=== PATIENT | female | born 1945 | race Caucasian/White ===

== ENCOUNTER → 2018-04-14 14:20 | Outpatient (REF) | payer MEDICARE, SELFPAY ==
--- NOTE | 2018-04-14 13:20 | PAPFT_PTH ---
PATIENT: GINA ESCOBAR LOC: [facility] U#:[id number] AGE/SX: 80/F ROOM: RE04/14/[address]: Mai Pozo : 1945 BED: DIS: SPEC #: [id number] RECD: 04/14/18 17:58 STATUS: HALI REWaldo #: [id number] NA: 04/14/18 13:[address]: Mai Pozo DEPT: [facility] RECD BY: Nicole Blount ENTERED: 04/14/18 17:59 SP TYPE: PAPFT OTHR DR: Beth Hanley V Tissues: 1 - CX/ENDOCX FOR PAP SMEARS Procedures: PAP THIN PREP/[facility] Screening Comments: [id number] (UNSATISFACTORY FOR EVALUATION)
== END ==
LOC: LBN 14:20
PROVIDERS: PCP Family Medicine; Visit Provider Obstetrics & Gynecology Gynecology
DX: Z12.4 Encounter for screening for malignant neoplasm of cervix (principal); Z11.51 Encounter for screening for human papillomavirus (HPV)
CPT/HCPCS: 88142; 87624

== ENCOUNTER 2018-07-10 13:03 | Outpatient (CLI) | payer MEDICARE, SELFPAY ==
[2018-07-10 14:38] LABS: Vitamin B12 767 pg/mL (193-986)
[2018-07-15 08:44] LABS: Methylmalonic Acid 0.21 nmol/mL (<=0.40)
== END 2018-07-10 13:23 ==
PROVIDERS: PCP Family Medicine; Visit Provider Family Medicine
DX: E53.8 Deficiency of other specified B group vitamins (principal)
CPT/HCPCS: 36415; 80186; 82607

== ENCOUNTER 2018-07-10 14:37 | Outpatient (REF) | payer MEDICARE, SELFPAY ==
[2018-07-10 15:36] LABS: Bilirubin Small (Negative); Blood Moderate (Negative); Clarity Cloudy; Glucose Negative (Negative); Ketones Trace mg/dL (Negative); Leukocyte Esterase Moderate (Negative); Nitrite Negative (Negative); Specific Gravity >= 1.030 (1.005-1.025); Urobilinogen 0.2 EU/dL (Up TO 0.2)
[2018-07-10 16:36] LABS: Bacteria Rare HPF (Negative); C & S Indicated? No/Sq. Contamination; Casts Negative LPF (Negative); Crystals Many Calcium Oxalate HPF (Negative); Epithelial Cells Many HPF (Negative); Mucus Moderate (Negative); Other Cells Rare Transitional (Negative); WBC 20-50 HPF (0-5)
== END 2018-07-10 14:57 ==
LOC: NCHCN 14:37
PROVIDERS: PCP Family Medicine; Visit Provider Family Medicine
DX: R35.0 Frequency of micturition (principal)
CPT/HCPCS: 81003; 81015

== ENCOUNTER 2018-07-31 14:07 | Outpatient (CLI) | payer MEDICARE, SELFPAY ==
[2018-07-31 15:19] LABS: Abs Immature Grans 0.02 k/cumm (0.0-0.09); Absolute Basophil Count 0.02 k/cumm (0.0-0.2); Absolute Eosinophil Count 0.11 k/cumm (0.0-0.7); Absolute Lymphocyte Count 0.95 k/cumm (1.2-3.4); Absolute Monocyte Count 0.56 k/cumm (0.11-0.7); Absolute Neutrophil Count 6.98 k/cumm (1.2-6.7); Basophils % 0.2; Eosinophils % 1.3; HCT 44.2 % (36.0-46.0); HGB 14.4 g/dL (12.0-15.5); Immature Grans % 0.2; Mean Corp. HGB Concentration 32.6 g/dL (32.0-36.0); Mean Corpuscular Hemoglobin 30.1 pg (27.0-33.0); Mean Corpuscular Volume 92.5 fL (80-95); Mean Platelet Volume 9.6 fL (8.0-11.0); Monocytes % 6.5; Neutrophils % 80.8; Platelet Count 275 x1000/uL (130-400); RBC 4.78 m/cumm (4.00-5.20); RBC Distribution Width 14.2 % (11.7-14.6); White Blood Cell Count 8.64 k/cumm (4.4-10.8)
[2018-07-31 16:07] LABS: Anion Gap 9.2 mmol/L (3-11); BUN 20 mg/dL (7-18); CO2 26.8 mmol/L (21.0-32.0); Calcium 9.5 mg/dL (8.5-10.1); Chloride 103 mmol/L (98-107); Ferritin 51 ng/mL (8-388); Glucose 136 mg/dL (70-100); Potassium 4.2 mmol/L (3.5-5.1); Sodium 139 mmol/L (136-145); TSH 1.45 uIU/mL (0.358-3.74)
[2018-07-31 16:16] LABS: Folate > 20.0 ng/mL (8.6-20.0)
[2018-07-31 16:52] LABS: FREE T4 1.16 ng/dL (0.76-1.46)
== END 2018-07-31 14:27 ==
PROVIDERS: PCP Family Medicine; Visit Provider Family Medicine
DX: R53.83 Other fatigue (principal); D50.9 Iron deficiency anemia, unspecified
CPT/HCPCS: 36415; 80048; 82728; 82746; 84439; 84443; 85025

== ENCOUNTER 2018-10-01 15:43 | Outpatient (CLI) | payer MEDICARE, SELFPAY ==
[2018-10-01 16:08] LABS: Bilirubin Negative (Negative); Blood Small (Negative); Clarity Clear; Glucose Negative (Negative); Ketones Negative (Negative); Leukocyte Esterase Negative (Negative); Nitrite Negative (Negative); Urobilinogen 0.2 EU/dL (Up TO 0.2); pH 5.5 (5-8)
[2018-10-01 16:17] LABS: Bacteria Negative HPF (Negative); Epithelial Cells Rare HPF (Negative); Mucus Negative (Negative); RBC 0-2 (0-2); WBC 0-2 HPF (0-5)
[2018-10-01 16:18] LABS: C & S Indicated? No
== END 2018-10-01 16:03 ==
PROVIDERS: PCP Family Medicine; Visit Provider Family Medicine
DX: R35.0 Frequency of micturition (principal)
CPT/HCPCS: 81003; 81015

== ENCOUNTER 2018-11-20 09:21 | Emergency (ER) | payer MEDICARE, SELFPAY ==
[2018-11-20] VITALS (38 sets, daily range): BP systolic 120–172; BP diastolic 71–88; PULSE 77–129; RESP 4–34; TEMP 36.7; O2SAT 94–99
[2018-11-20] MEDS: Albuterol/Ipratropium 3 ML UPD VIAL UPD (10:35)
--- NOTE | 2018-11-20 10:35 | ED.GENADUL_ITS ---
Discharge Plan Disposition Patient Disposition: HOME Condition: Good Discharge Details Chief Complaint: Palpitatns Clinical Impression: SOB (shortness of breath), Chest pain Primary Care Provider: Beth Hanley V ED Provider: Donell Paulino Home Meds and New Rx's Prescriptions: No Action ASPIRIN 325 MG TABLET.DR 325 mg PO PRN RF: 0 breast prosethesis 1 RF: 0 lisinopril 20 MG tablet 10 mg PO PRN RF: 0 Metoprolol Succinate 25 MG TAB.ER.24H 25 mg PO PRN RF: 0 Multi Complete with Iron 1 EACH tablet 1 ea PO DAILY RF: 0 cranactin DAILY RF: 0 obsorbaid DAILY RF: 0 tums 1,000 DAILY RF: 0 obsorbaid DAILY RF: 0 tums DAILY RF: 0 Estring 2 mg (7.5 mcg /24 hour) ring 1 vag ring VG [id number] Qty: 1 RF: 3 lidocaine 4 % gel 1 applic TP TID PRN (Reason: pain) Qty: 30 RF: 6 lidocaine 5 % ointment 1 applic TP TID Qty: 60 RF: 3 VITAMIN B-12 1,000 MCG TABLET.SA 1,000 mcg IJ .COMPLEX RF: 0 Discharge Instructions Instructions: Chest Pain (ED), Dyspnea (ED) Additional Instructions: Please follow-up with your flooring grader and your primary care provider as soon as possible for reassessment. If you notice any worsening of your symptoms, or any new symptoms such as vomiting, diarrhea, fever, chills, shortness of breath, chest pain, numbness, weakness, or fainting , please return immediately to the emergency department for reevaluation. Please follow up with your primary care provider as soon as possible for reassessment and reevaluation. As always, it was a pleasure participating in your medical care today. Referrals: Beth Hanley MD [Primary Care Provider] - Discharge Data Discharge Date/Time-TO BE ENTERED AT DEPARTURE: 11/20/18 15:15 Medical Decision Making This is a very pleasant 73-year-old female who presents for 1 day of palpitations and mild shortness of breath, the shortness of breath and palpitations are present she was going up a flight of stairs. She denies any significant chest pain, arm pain, numbness tingling or weakness. She is on estrogen. She denies any tearing sensation in her chest, history of cardiac disease, or other abnormality. Physical exam demonstrates no significant abnormality, vital signs are reassuring. Patient's laboratory workup was performed, including CT angiogram of the chest. CT angiogram shows no acute process, no evidence of pulmonary embolism, dissection, pneumonia or infection. Patient was given a breathing treatment and had notable improvement of her symptoms. Serial troponins, and EKGs benign and show no evidence of STEMI or significant abnormality aside for her chronic A. fib. The patient feeling much better, benign laboratory workup is benign serial EKGs and serial troponins, no evidence of life-threatening process on CT angiogram, I feel she can be safely discharged home for the time being with close follow-up. We discussed red flags which to return, the importance of her continued albuterol use at home, and red flags for which to return. I have extensively reviewed the treatment plan and discharge instructions with the patient. I have addressed all patient concerns at this time. The patient was made aware of what symptoms to monitor for that would warrant a return to the emergency department. Discussed the plan with the patient, they demonstrate verbal understanding and agreement with our assessment and plan at this time. EKG 9: 40 Rate 91, QTc 443, QRS 92, atrial fibrillation, no significant ST elevations or depressions. No Q waves, PVCs present. No other significant abnormalities. EKG 13: 59 Rate 90, QTc 458, QRS 90, atrial fibrillation, no significant ST elevations or depressions. HPI General Date/Time Provider Initiated Documentation: 11/20/18 09:51 . HPI Narrative: This is a pleasant 73-year-old female with past medical history of estrogen use, A. fib, not on any blood thinners secondary to which she describes as being very low risk, who presents today for evaluation of palpitations and shortness of breath. Patient states that he does have a chronic cough, however over the last day she has noticed that she has become slightly more short of breath than normal. She has experienced palpitations when she walks upstairs which normally she would not. She denies any significant chest pain, any tearing sensation, any radiation of pain into her arms, neck, shoulders. She denies any hemoptysis, fever, chills, new leg swelling, numbness, tingling, headache, or weakness. She denies any recent long trips, recent surgeries, or recent procedures. She denies any history of blood clots, heart attack, or stroke. She does not smoke. She denies any other modifying factors at this time. Related Data Home Medications Medication Instructions Recorded Confirmed Aspirin 325 mg PO PRN 03/05/08 11/20/18 Breast Prosethesis 1 09/24/12 10/09/18 Metoprolol Succinate 25 mg PO PRN tab-cap 03/12/18 11/20/18 lisinopril 10 mg PO PRN 03/12/18 11/20/18 Obsorbaid DAILY 04/14/18 10/09/18 Tums 1,000 DAILY 04/14/18 10/09/18 Tums DAILY 04/14/18 10/09/18 [id number] acid 1 ea PO DAILY 04/14/18 11/20/18 [Multi Complete-Iron Tablet] estradiol 2 mg (7.5 mcg/24 hour) 1 vag ring VG [id number] #1 each 08/28/18 11/20/18 vaginal ring lidocaine 4 % topical gel 1 applic TP TID PRN #30 gm 08/28/18 11/20/18 lidocaine 5 % topical ointment 1 applic TP TID #60 gm 08/28/18 11/20/18 VITAMIN B-12 1,000 mcg IJ .COMPLEX 10/09/18 11/20/18 Previous Rx's Medication Instructions Recorded estradiol 2 mg (7.5 mcg/24 hour) 1 vag ring VG [id number] #1 each 08/28/18 vaginal ring lidocaine 4 % topical gel 1 applic TP TID PRN #30 gm 08/28/18 lidocaine 5 % topical ointment 1 applic TP TID #60 gm 08/28/18 Allergies Allergy/AdvReac Type Severity Reaction Status Date / Time metoprolol AdvReac pedal edema Unverified 11/20/18 09:47 dilitiazem AdvReac Nightmares Uncoded 11/20/18 09:47 General Stated Complaint: Palpitatns SARAHY: 2 Review of Systems Review of Systems All systems reviewed & are unremarkable except as noted in HPI and below PFSH Medical History Vaginal pessary present (Acute 09/27/17) Obstructive sleep apnea on CPAP (Acute 06/04/17) Non-rheumatic mitral regurgitation (Acute 06/04/17) Midline cystocele (Acute 09/09/15) History of breast cancer (Acute 06/17/15) Chronic atrial fibrillation with rapid ventricular response (Acute 06/04/17) Atrophy of vagina (Acute 09/09/15) Cystocele, midline Foul smelling vaginal discharge HTN (hypertension) Vitamin B12 deficiency Social History Smoking/Tobacco Use Status: Former Tobacco Use Substance use type: does not use Do you feel safe in your relationship?: Yes Exam Narrative Exam Narrative: 1.Const: Well-nourished, Well-developed, appearing stated age 2.Eyes: PERRL, no conjunctival injection, and symmetrical lids. 3.ENT: Atraumatic external nose and ears. Moist MM. Neck: Symmetric, trachea midline, No thyromegaly. 4.CVS: +S1/S2, No murmurs or gallops. Peripheral pulses 2+ and equal in all extremities. Brisk capillary refill in all extremities. 5.RESP: Unlabored respiratory effort. Clear to auscultation bilaterally. No wheezes rales or rhonchi 6.GI: Soft, Nontender/Nondistended, No hepatosplenomegaly. No guarding or rebound. 7.MSK: Normocephalic/Atraumatic, Extremities w/o deformity or ttp No cyanosis or clubbing, Normal movement of all extremities, minimal trace pitting edema in her lower extremities bilaterally. Minimal tenderness in her lower extremities throughout, no focal tenderness. 8.Skin: Warm, Dry. No rashes or lesions. 9.Neuro: data virtualization consultant II-XII grossly intact. Sensation grossly intact, no focal neurologic deficits. 10.Psych: (AAO) x3. Appropriate mood and affect Course Vital Signs Temperature 36.7 C 11/20/18 09:41 Pulse 104 H 11/20/18 09:41 Respiratory Rate 11/20/18 09:41 Blood Pressure 172/75 H 11/20/18 09:41 Pulse Oximetry 98 11/20/18 09:41 Temperature 36.7 C 11/20/18 09:41 Temperature Source Skin 11/20/18 09:41 Pulse 104 H 11/20/18 09:41 Respiratory Rate 11/20/18 09:41 Respiratory Effort Non-Labored 11/20/18 09:41 Blood Pressure 172/75 H 11/20/18 09:41 Blood Pressure Position Supine 11/20/18 09:41 Pulse Oximetry 98 11/20/18 09:41 Oxygen Delivery Method Room Air 11/20/18 09:41 Oxygen Flow Rate 0 11/20/18 09:41 Pain Level 0 11/20/18 09:41
[2018-11-20 11:45] LABS: BE (Venous) 4.4 mmol/L (-3-3); HCO3 (Venous) 29 mmol/L (22-28); O2 Sat (Venous) 65 % (70-80); TCO2 (Venous) 26 mmol/L (22-29); pCO2 (Venous) 49 mm/Hg (34-47); pH (Venous) 7.39 (7.32-7.43); pO2 (Venous) 34 mm/Hg (28-44)
[2018-11-20 11:46] LABS: Abs Immature Grans 0.01 k/cumm (0.0-0.09); Absolute Basophil Count 0.03 k/cumm (0.0-0.2); Absolute Eosinophil Count 0.08 k/cumm (0.0-0.7); Absolute Lymphocyte Count 1.33 k/cumm (1.2-3.4); Absolute Monocyte Count 0.67 k/cumm (0.11-0.7); Absolute Neutrophil Count 5.91 k/cumm (1.2-6.7); Basophils % 0.4; HCT 44.8 % (36.0-46.0); HGB 14.7 g/dL (12.0-15.5); Immature Grans % 0.1; Lymphocytes % 16.6; Mean Corp. HGB Concentration 32.8 g/dL (32.0-36.0); Mean Corpuscular Hemoglobin 29.8 pg (27.0-33.0); Mean Corpuscular Volume 90.9 fL (80-95); Monocytes % 8.3; Neutrophils % 73.6; Platelet Count 220 x1000/uL (130-400); RBC 4.93 m/cumm (4.00-5.20); RBC Distribution Width 14.6 % (11.7-14.6); White Blood Cell Count 8.03 k/cumm (4.4-10.8)
[2018-11-20 12:05] LABS: ALT 20 U/L (12-78); AST 19 U/L (15-37); Albumin 3.8 g/dL (3.4-5.0); Alkaline Phosphatase 83 U/L (46-116); Anion Gap 8.5 mmol/L (3-11); BUN 15 mg/dL (7-18); Bilirubin, Total 0.5 mg/dL (0.2-1.0); CO2 27.5 mmol/L (21.0-32.0); CREATININE 0.91 mg/dL (0.55-1.02); Calcium 9.9 mg/dL (8.5-10.1); Chloride 104 mmol/L (98-107); Glucose 103 mg/dL (70-100); NT-proBNP 893 pg/mL; Potassium 3.6 mmol/L (3.5-5.1); Sodium 140 mmol/L (136-145)
[2018-11-20 12:08] LABS: PTT Activated 25.9 sec (21.0-31.4); Prothrombin Time 9.8 sec (9.3-11.0); Troponin I < 0.02 ng/mL (0.00-0.06)
[2018-11-20 12:14] LABS: D-Dimer 469 ng/mlFEU (<500)
--- NOTE | 2018-11-20 13:09 | DI.CT_ITS ---
SYMPTOMS/DIAGNOSIS: TACHYCARDIA, SHORTNESS OF BREATH, A-FIB, ESTROGEN USE, ? PE PE CT: The study was conducted according to the usual protocol with intravenous administration of 71 cc of Omnipaque 350. There is no evidence of pulmonary embolic disease. There are regions of apparent bilateral lower lobe scarring. There is no evidence of an infiltrate or mass. A large hiatus hernia appears to contain virtually the entire stomach. The heart is enlarged. There is no pericardial effusion. There is no evidence of RV strain. There is no evidence of an aortic aneurysm. There are degenerative changes involving the dorsal spine. No acute bony abnormality is apparent. SUMMARY: No evidence of pulmonary embolic disease. Regions of pulmonary scarring are noted. A large retrocardiac hiatus hernia contains virtually the entire stomach.
[2018-11-20] MEDS: Omnipaque 350 MG/ML 100 ML BTL IJ (13:11)
[2018-11-20 14:23] LABS: Troponin I < 0.02 ng/mL (0.00-0.06)
== END 2018-11-20 15:15 | disposition home or self-care (01) ==
PROVIDERS: Emergency Provider Student in an Organized Health Care Education/Training Program; PCP Family Medicine
DX: R07.9 Chest pain, unspecified (principal); R06.02 Shortness of breath; I10 Essential (primary) hypertension
CPT/HCPCS: 36415; 71275; 80053; 82805; 93005; 94640; 99285; 83880; 84484; 85025; 85379; 85610; 85730; 93010; J3490; J7620

== ENCOUNTER 2018-12-21 10:38 | Emergency (ER) | payer MEDICARE, SELFPAY ==
[2018-12-21 10:41] VITALS: BP 157/95; PULSE 97; RESP 16; TEMP 36.4; O2SAT 98
--- NOTE | 2018-12-21 11:05 | ED.GENADUL_ITS ---
Discharge Plan Disposition Patient Disposition: HOME Condition: Improving Discharge Details Chief Complaint: RespSymp Clinical Impression: Acute bronchitis Primary Care Provider: Beth Hanley V ED Provider: Isai Shaw Home Meds and New Rx's Prescriptions: New doxycycline hyclate 100 mg capsule 100 mg PO BID 10 Days Qty: 20 RF: 0 guaifenesin [Mucinex] 600 mg tablet extended release 12hr 600 mg PO Q12H PRNQty: 10 RF: 0 benzonatate [Tessalon Perles] 100 mg capsule 100 mg PO TID PRN (Reason: cough) Qty: 14 RF: 0 No Action ASPIRIN 325 MG TABLET.DR 325 mg PO PRN RF: 0 breast prosethesis 1 RF: 0 Metoprolol Succinate 25 MG TAB.ER.24H 25 mg PO PRN RF: 0 Multi Complete with Iron 1 EACH tablet 1 ea PO DAILY RF: 0 cranactin DAILY RF: 0 obsorbaid DAILY RF: 0 tums DAILY RF: 0 Estring 2 mg (7.5 mcg /24 hour) ring 1 vag ring VG [id number] Qty: 1 RF: 3 lidocaine 4 % gel 1 applic TP TID PRN (Reason: pain) Qty: 30 RF: 6 lidocaine 5 % ointment 1 applic TP TID Qty: 60 RF: 3 VITAMIN B-12 1,000 MCG TABLET.SA 1,000 mcg IJ .COMPLEX RF: 0 Discharge Instructions Instructions: Acute Bronchitis (ED) Additional Instructions: Small, frequent sips of fluids to maintain hydration. As we discussed, we will employ a wait and see approach to use of antibiotics. Begin them if you feel worsening over the next 12 to 36 hours time. May use Tessalon and Mucinex as prescribed to decrease cough and congestion. Please follow-up with Dr Casanova if not improved in 3 to 5 days Medical Decision Making Delightful 73-year-old female presents from home with day 3 of a cough with progressive congestion. She is had some production of sputum. She has not documented a fever, does not have any known sick contacts or recent travel. No chest pain, palpitations, or other concerning findings on review of systems or exam. She is well-appearing with normal oxygenation. Referred for chest x-ray to rule out underlying mass or pneumonia. Images: Reveal atelectasis and known hiatal hernia. No focal infiltrate. Discussed with there are a strategy of weight and see use of antibiotics. I will prescribe her Mucinex and Tessalon for symptomatic management. She is stable and improved. Appropriate for discharge to home. She will follow-up with Dr Casanova if not improved in 3-5 days. HPI General Mode of arrival: ambulatory . Date/Time Provider Initiated Documentation: 12/21/18 10:39 . Limitations to Documentation: no limitations . Information obtained by: patient . History of Present Illness 73 year old F presents to the emergency department with the chief complaint of Cough and congestion since Saturday, described as moderate, Quality is described as dull, and is localized to the chest. Patient reports no radiation. Patient started experiencing this day(s) and it has been constant. No relieving factors improve symptom(s), Other factors that worsen symptoms (Worse at night) . Patient notes no other symptoms.; denies chest pain, fever/chills, syncope and weakness. Patient did receive the following treatments prior to arrival, none Related Data Home Medications Medication Instructions Recorded Confirmed Aspirin 325 mg PO PRN 03/05/08 12/21/18 Breast Prosethesis 1 09/24/12 10/09/18 Metoprolol Succinate 25 mg PO PRN tab-cap 03/12/18 11/20/18 Tums DAILY 04/14/18 10/09/18 [id number]-ddeml acid 1 ea PO DAILY 04/14/18 12/21/18 [Multi Complete-Iron Tablet] estradiol 2 mg (7.5 mcg/24 hour) 1 vag ring VG [id number] #1 each 08/28/18 12/21/18 vaginal ring lidocaine 4 % topical gel 1 applic TP TID PRN #30 gm 08/28/18 12/21/18 lidocaine 5 % topical ointment 1 applic TP TID #60 gm 08/28/18 12/21/18 VITAMIN B-12 1,000 mcg IJ .COMPLEX 10/09/18 12/21/18 benzonatate [Tessalon Perles] 100 mg PO TID PRN #14 cap 12/21/18 doxycycline hyclate 100 mg PO BID 10 Days #20 cap 12/21/18 guaifenesin [Mucinex] 600 mg PO Q12H PRN #10 tab 12/21/18 Previous Rx's Medication Instructions Recorded estradiol 2 mg (7.5 mcg/24 hour) 1 vag ring VG [id number] #1 each 08/28/18 vaginal ring lidocaine 4 % topical gel 1 applic TP TID PRN #30 gm 08/28/18 lidocaine 5 % topical ointment 1 applic TP TID #60 gm 08/28/18 benzonatate [Tessalon Perles] 100 mg PO TID PRN #14 cap 12/21/18 doxycycline hyclate 100 mg PO BID 10 Days #20 cap 12/21/18 guaifenesin [Mucinex] 600 mg PO Q12H PRN #10 tab 12/21/18 Allergies Allergy/AdvReac Type Severity Reaction Status Date / Time adhesive Allergy Intermediate Verified 12/21/18 10:44 metoprolol AdvReac pedal edema Unverified 12/21/18 10:44 dilitiazem AdvReac Nightmares Uncoded 12/21/18 10:44 General Stated Complaint: RespSymp SARAHY: 3 Review of Systems Review of Systems No chest pain, palpitations, recent travel. 8 systems reviewed and otherwise negative [facility] Medical History Vaginal pessary present (Acute 09/27/17) Obstructive sleep apnea on CPAP (Acute 06/04/17) Non-rheumatic mitral regurgitation (Acute 06/04/17) Midline cystocele (Acute 09/09/15) History of breast cancer (Acute 06/17/15) Chronic atrial fibrillation with rapid ventricular response (Acute 06/04/17) Atrophy of vagina (Acute 09/09/15) Cystocele, midline Foul smelling vaginal discharge HTN (hypertension) Vitamin B12 deficiency Surgical History Breast, Mastectomy Social History Smoking/Tobacco Use Status: Former Tobacco Use Substance use type: does not use Do you feel safe in your relationship?: Yes Exam Narrative Exam Narrative: GEN: awake, alert, oriented 3. Pleasant, well groomed, interactive. HEAD: Normocephalic, atraumatic ENT: Mucous membranes moist, oropharynx unremarkable, External ear exam unremarkable EYES: PERRL, EOMI NECK: Full ROM, no JONO, no menigismus CHEST/RESP: Nontender, clear to auscultation bilateral, no wheeze/rhonchi/rales, cough noted and slightly diminished throughout CARDIOVASCULAR: RRR, no murmur, rub caroline. 2+ Rad pulse bilateral ABDOMEN: Soft, nontender, no mass. +Bowel sounds EXT: Full ROM, no edema, no rash Neuro: Grossly normal neurologic exam, conversant, interactive. Psych: Speech fluent, thoughts congruent, affect normal Course Vital Signs Temperature 36.4 C L 12/21/18 10:41 Pulse 97 H 12/21/18 10:41 Respiratory Rate 16 12/21/18 10:41 Blood Pressure 157/95 H 12/21/18 10:41 Pulse Oximetry 98 12/21/18 10:41 Temperature 36.4 C L 12/21/18 10:41 Temperature Source Skin 12/21/18 10:41 Pulse 97 H 12/21/18 10:41 Respiratory Rate 16 12/21/18 10:41 Respiratory Effort Non-Labored 12/21/18 10:48 Blood Pressure 157/95 H 12/21/18 10:41 Pulse Oximetry 98 12/21/18 10:41 Pain Level 5 12/21/18 10:41
--- NOTE | 2018-12-21 11:08 | DI.RAD_ITS ---
SYMPTOMS/DIAGNOSIS: COUGH, CONGESTION CHEST: Frontal and lateral views. Comparison 09/17/11. The heart size is stable. Pulmonary vasculature is within normal limits. There is again seen a large hiatal hernia. Plate atelectasis is seen in the right lung base. No focal consolidating infiltrates, effusions or pneumothoraces are identified. Degenerative changes are present in the spine. IMPRESSION: Basilar atelectasis.
[2018-12-21 11:32] VITALS: O2SAT 94
[2018-12-21 11:40] VITALS: O2SAT 95
[2018-12-21 11:46] VITALS: BP 125/85; PULSE 83; O2SAT 94
[2018-12-21 11:47] VITALS: O2SAT 92
--- NOTE | 2018-12-21 11:51 | DI.VRAD_ITS ---
EXAM: XR Chest, 2 Views EXAM DATE/TIME: 12/21/2018 10:57 AM CLINICAL HISTORY: 73 years old, female; Signs and symptoms; Cough; Additional info: Cough, congestion TECHNIQUE: Imaging protocol: XR of the chest, 2 views. COMPARISON: CT CHEST PE CTA 11/20/2018 1:00 PM FINDINGS: Lungs: Bibasilar atelectasis. Pleural space: Unremarkable. No pleural effusion. No pneumothorax. Heart/Mediastinum: Large hiatal hernia. Bones/joints: Unremarkable. IMPRESSION: 1. Large hiatal hernia. 2. Bibasilar atelectasis. Dictated and Authenticated by: Judi Dyer MD. Ordering:ANTONIO Alex MD
[2018-12-21 12:03] VITALS: BP 135/85; PULSE 87; TEMP 36.6; O2SAT 94
== END 2018-12-21 12:09 | disposition home or self-care (01) ==
PROVIDERS: Emergency Provider Emergency Medicine; PCP Family Medicine
DX: J20.9 Acute bronchitis, unspecified (principal); J98.11 Atelectasis; K44.9 Diaphragmatic hernia without obstruction or gangrene; I10 Essential (primary) hypertension
CPT/HCPCS: 99283; 71046

== ENCOUNTER → 2018-12-22 11:51 | Outpatient (BNVA) | payer MEDICARE, SELFPAY | PROVIDERS: PCP Family Medicine; Visit Provider Student in an Organized Health Care Education/Training Program | DX: R06.09 Other forms of dyspnea (principal); I48.2 Chronic atrial fibrillation; R53.83 Other fatigue; G47.33 Obstructive sleep apnea (adult) (pediatric) | CPT/HCPCS: 99215 ==

== ENCOUNTER 2019-01-08 00:56 | Outpatient (CLI) | payer MEDICARE, SELFPAY ==
--- NOTE | 2019-01-08 14:45 | MERGE_ITS ---
*[facility]* *[facility]* [address] [place] [address] Date of study: 01/08/2019 Transthoracic Echocardiography M-mode, complete 2D, complete spectral Doppler, and color Doppler *STUDY CONCLUSIONS* Summary: 1. Left ventricle: The cavity size was normal. Systolic function was hyperdynamic. The estimated ejection fraction was 65-70%. The study was not technically sufficient to allow evaluation of LV diastolic dysfunction due to atrial fibrillation. Doppler parameters are consistent with high ventricular filling pressure. 2. Mitral valve: There was moderate regurgitation. 3. Left atrium: The atrium was severely dilated. 4. Right ventricle: The cavity size was normal. Wall thickness was normal. Systolic function was normal. 5. Right atrium: The atrium was severely dilated. 6. Atrial septum: No defect or patent foramen ovale was identified. 7. Tricuspid valve: There was moderate regurgitation. 8. Pulmonary arteries: Pulmonary systolic pressure was in the range of 45mm Hg to 55mm Hg. 9. Inferior vena cava: The vessel was patent and normal in size. The respirophasic diameter changes were in the normal range (greater than or equal to 50%), consistent with normal central venous pressure. *PATIENT PRESENTATION* Height: 154.9cm ((61in) ) S/D Pressure: 154 / 90 Weight: 74.8kg ((164.7lb) ) BSA: 1.82m^2 Test start time: 02:50 PM. Test stop time: 03:50 PM. CONSULTING Beth Hanley V PERFORMING [facility] ORDERING Tai Hernandez REFERRING Tai Hernandez PERFORMING [facility] SILK SCREEN FRAME ASSEMBLER Cristal Elizabeth RT (R)(CT), RDCS *PROCEDURE DATA* Procedure information: The patient was identified by two identifiers. This study was interpreted by [facility]. Pertinent images and digital data are archived for permanent storage and are available for subsequent review. Comparison was made to the study of 04/26/2016. Study status: Routine. Transthoracic echocardiography. M-mode, complete 2D, complete spectral Doppler, and color Doppler. A Transthoracic Echocardiogram was performed. Scanning was performed from the parasternal, apical, subcostal, and suprasternal notch acoustic windows. Images were obtained using an [id number] cardiac ultrasound machine. Image quality was adequate. Study completion: The patient tolerated the procedure well. History: PMH: Afib i48.91 *CARDIAC ANATOMY* Left ventricle: The cavity size was normal. Systolic function was hyperdynamic. The estimated ejection fraction was 65-70%. The study was not technically sufficient to allow evaluation of LV diastolic dysfunction due to atrial fibrillation. Doppler parameters are consistent with high ventricular filling pressure. Aortic valve: Trileaflet. Doppler: There was no stenosis. There was no regurgitation. VTI ratio of LVOT to aortic valve: 0.73. Valve area (VTI): 2.3cm^2. Indexed valve area (VTI): 1.3cm^2/m^2. Peak velocity ratio of LVOT to aortic valve: 0.76. Valve area (Vmax): 2.4cm^2. Indexed valve area (Vmax): 1.3cm^2/m^2. Mean velocity ratio of LVOT to aortic valve: 0.78. Valve area (Vmean): 2.4cm^2. Indexed valve area (Vmean): 1.3cm^2/m^2. Mean gradient (S): 2.9mm Hg. Peak gradient (S): 4.8mm Hg. Aorta: Aortic root: The aortic root was normal in size. Ascending aorta: The ascending aorta was moderately dilated. Mitral valve: Doppler: There was no evidence for stenosis. There was moderate regurgitation. Valve area by pressure half-time: 5.1cm^2. Indexed valve area by pressure half-time: 2.8cm^2/m^2. Peak gradient (D): 4.4mm Hg. Left atrium: The atrium was severely dilated. Atrial septum: No defect or patent foramen ovale was identified. Right ventricle: The cavity size was normal. Wall thickness was normal. Systolic function was normal. Pulmonic valve: Doppler: There was no evidence for stenosis. There was trivial regurgitation. Peak gradient (S): 2.6mm Hg. Tricuspid valve: Doppler: There was moderate regurgitation. Pulmonary artery: Poorly visualized. Pulmonary systolic pressure was in the range of 45mm Hg to 55mm Hg. Right atrium: The atrium was severely dilated. Pericardium: There was no pericardial effusion. Systemic veins: Inferior vena cava: Well visualized. The vessel was patent and normal in size. The respirophasic diameter changes were in the normal range (greater than or equal to 50%), consistent with normal central venous pressure. Baseline ECG: Atrial fibrillation. Measurements Left ventricle Value Reference LV ID, ED, PLAX 4.5 cm 3.5 - 6.0 LV ID, ES, PLAX 2.8 cm 2.1 - 4.0 LV PW thickness, ED, PLAX 1.1 cm LV end-diastolic volume, 1-p A2C 52 ml LV ejection fraction, 1-p A2C 63 % LV end-diastolic volume, 1-p A4C 68 ml LV ejection fraction, 1-p A4C 71 % LV e', lateral 0.088 m/sec LV E/e', lateral 12 LV e', medial 0.081 m/sec LV E/e', medial 13 LV e', average 0.085 m/sec LV E/e', average 12 Ventricular septum Value Reference IVS thickness, ED, PLAX 1.1 cm LVOT Value Reference LVOT ID, A-P 2.0 cm LVOT area 3.1 cm^2 LVOT peak velocity, S 0.83 m/sec LVOT mean velocity, S 0.63 m/sec LVOT VTI, S 17.6 cm LVOT peak gradient, S 2.7 mm Hg LVOT mean gradient, S 1.8 mm Hg Stroke volume (SV), LVOT DP 55 ml Stroke index (SV/bsa), LVOT DP 30 ml/m^2 Aortic valve Value Reference Aortic valve peak velocity, S 1.1 m/sec Aortic valve mean velocity, S 0.81 m/sec Aortic valve VTI, S 24.0 cm Aortic mean gradient, S 2.9 mm Hg Aortic peak gradient, S 4.8 mm Hg VTI ratio, LVOT/AV 0.73 Aortic valve area, VTI 2.3 cm^2 Velocity ratio, peak, LVOT/AV 0.76 Aortic valve area, peak velocity 2.4 cm^2 Velocity ratio, mean, LVOT/AV 0.78 Aortic valve area, mean velocity 2.4 cm^2 Aortic valve area/bsa, mean velocity 1.3 cm^2/m^2 Aorta Value Reference Aortic root ID, ED 2.9 cm Ascending aorta ID, A-P, S 3.5 cm Left atrium Value Reference LA ID, A-P, ES 5.2 cm LA ID/bsa, A-P (H) 2.9 cm/m^2 <=2.2 LA area, ES, A4C (H) 31.5 cm^2 8.8 - 23.4 LA area, ES, A2C 32 cm^2 LA volume/bsa, ES, 1-p A4C 78 ml/m^2 LA volume, ES, 2-p 118 ml LA volume/bsa, ES, 2-p 64 ml/m^2 LA/aortic root ratio 1.83 Mitral valve Value Reference Mitral E-wave peak velocity 1.05 m/sec Mitral deceleration time (L) 147 ms 150 - 230 Mitral pressure half-time 43 ms Mitral peak gradient, D 4.4 mm Hg Mitral valve area, PHT, DP 5.1 cm^2 Pulmonary veins Value Reference Pulmonary vein peak velocity, S 0.18 m/sec Pulmonary vein peak velocity, D 0.77 m/sec Pulmonary vein velocity ratio, peak, 0.23 S/D Tricuspid valve Value Reference Tricuspid regurg peak velocity 3.4 m/sec Tricuspid peak RV-RA gradient 45.3 mm Hg Right atrium Value Reference RA area, ES, A4C (H) 23.8 cm^2 8.3 - 19.5 Pulmonic valve Value Reference Pulmonic peak gradient, S 2.6 mm Hg Legend: (L) and (H) keny values outside specified reference range. I have personally reviewed the images and have reviewed and edited the reported findings. Electronically signed by Mark Byrd MD 01/08/2019 18:44
== END 2019-01-08 01:16 ==
PROVIDERS: PCP Family Medicine; Visit Provider Student in an Organized Health Care Education/Training Program
DX: I48.91 Unspecified atrial fibrillation (principal); R06.09 Other forms of dyspnea; I51.7 Cardiomegaly; I34.0 Nonrheumatic mitral (valve) insufficiency
CPT/HCPCS: 93306

== ENCOUNTER 2019-01-12 03:04 | Outpatient (CLI) | payer MEDICARE, SELFPAY ==
--- NOTE | 2019-01-16 13:19 | HOLTER_ITS ---
HOLTER MONITOR REPORT DATE OF DICTATION: January 15, 2019 DATE OF RECORDING: January 12, 2019 DATE OF ANALYSIS: January 14, 2019 REFERRING PROVIDER: Tai Hernandez M.D. INDICATION: AFib/shortness of breath. FINDINGS: 1. Baseline 100% AF, 63-153 bpm, average 86 bpm. 2. Rare PVC, 133/24 hours, 0.1%, one couplet, one triplet, no VT. 3. No bradycardia or pauses. 4. Saturday01/12/19, 12:15, made lunch, shaky/heart pounding x 30 minutes with AF, 107 bpm. 5. Saturday01/12/19, 13:30, sitting, heart pounding x 3 minutes, with AF, 94 bpm.
== END 2019-01-12 03:24 ==
PROVIDERS: PCP Family Medicine; Visit Provider Student in an Organized Health Care Education/Training Program
DX: R06.02 Shortness of breath (principal); I48.91 Unspecified atrial fibrillation
CPT/HCPCS: 93225

== ENCOUNTER 2019-01-14 02:41 | Outpatient (CLI) | payer MEDICARE, SELFPAY ==
--- NOTE | 2019-01-17 09:17 | PFT_ITS ---
PULMONARY FUNCTION TEST REPORT DATE OF SERVICE: January 14, 2019 REQUESTING PROVIDER: Tai Hernandez M.D. Spirometry shows no evidence of obstructive airways disease; no bronchodilator testing was carried out. Lung volumes show no evidence of restriction. Diffusion capacity borderline mildly reduced, which is normal when corrected to alveolar volume. Airways resistance normal. IMPRESSION: No evidence of obstructive or restrictive lung disease. There is borderline mild diffusion defect, which is normal when corrected to alveolar volume. Clinical correlation recommended. This constellation of findings can be related to underlying hypoventilation and obesity or early developing interstitial lung disease or pulmonary hypertension. Clinical correlation therefore recommended. FAITH/glenys
== END 2019-01-14 03:01 ==
PROVIDERS: PCP Family Medicine; Visit Provider Student in an Organized Health Care Education/Training Program
DX: R06.02 Shortness of breath (principal); I48.91 Unspecified atrial fibrillation; Z87.891 Personal history of nicotine dependence
CPT/HCPCS: 94150; 94726; 94729; 93226; 94010

== ENCOUNTER 2019-01-15 22:48 | Outpatient (CLI) | payer MEDICARE, SELFPAY | END 2019-01-15 23:08 | PROVIDERS: PCP Family Medicine; Referring Provider Family Medicine; Visit Provider Internal Medicine Cardiovascular Disease | DX: R06.02 Shortness of breath (principal); I48.91 Unspecified atrial fibrillation | CPT/HCPCS: 93227 ==

== ENCOUNTER → 2019-02-04 09:20 | Outpatient (BNVA) | payer MEDICARE, SELFPAY | PROVIDERS: PCP Family Medicine; Visit Provider Student in an Organized Health Care Education/Training Program | DX: I50.30 Unspecified diastolic (congestive) heart failure (principal); I27.22 Pulmonary hypertension due to left heart disease; I08.1 Rheumatic disorders of both mitral and tricuspid valves; I48.2 Chronic atrial fibrillation; R06.09 Other forms of dyspnea; I11.0 Hypertensive heart disease with heart failure | CPT/HCPCS: 99214 ==

== ENCOUNTER 2019-05-28 15:29 | Outpatient (CLI) | payer MEDICARE, SELFPAY ==
[2019-05-28 16:12] LABS: HCT 44.6 % (36.0-46.0); HGB 14.6 g/dL (12.0-15.5)
[2019-05-28 19:26] LABS: Folate 18.2 ng/mL (8.6-20.0)
[2019-05-28 19:35] LABS: Vitamin D 25 Total 27.3 ng/ml (30-100)
== END 2019-05-28 15:49 ==
PROVIDERS: PCP Family Medicine; Visit Provider Family Medicine
DX: D50.9 Iron deficiency anemia, unspecified (principal); E55.9 Vitamin D deficiency, unspecified; E53.8 Deficiency of other specified B group vitamins; M81.0 Age-related osteoporosis without current pathological fracture
CPT/HCPCS: 36415; 82306; 82746; 85014; 85018

== ENCOUNTER 2019-06-11 00:12 | Outpatient (CLI) | payer MEDICARE, SELFPAY ==
--- NOTE | 2019-06-11 12:33 | DI.MAMMO_ITS ---
EXAM: MAMMO SCREENING CLINICAL HISTORY: Screening, 08.25, personal h/o breast cancer s/p left mastectomy in 1993 TECHNIQUE: Mammograms were interpreted according to the usual protocol including computer analysis w [employer] CAD system, tomosynthesis and C-view imaging. COMPARISON: 2011 through 2007. FINDINGS: Breast Density - Category C - Heterogeneously dense The patient is status post left mastectomy. No suspicious masses or suspicious microcalcifications a re seen in the right breast. There has been no significant change. IMPRESSION: Category 1, negative mammogram. Yearly screening mammography is recommended. BI-RADS Cat 1 - Negative Breast Density - Category C - Heterogeneously dense The mammogram demonstrates the patient's breast tissue is dense. Dense breast tissue is very common a nd is not abnormal but dense breast tissue can make it harder to find cancer on a mammogram. Also, de nse breast tissue may increase their breast cancer risk. This information about the result of the [facility] mogram report was provided to the patient to raise their awareness. Use this report when you speak wi th the patient about their risks for breast cancer, which includes their family history. At that time , you may recommend for more screening tests (Ultrasound or MRI) as they might be useful based on the ir risk. A negative radiographic report should not delay biopsy if a dominant or clinically suspicious mass is present. Up to ten percent of cancers are not identified on mammography. A negative report may reinforce clinical impression. Adenosis and dense breasts may obscure an underlying neoplasm. False positive reports average 6 to 10%.
== END 2019-06-11 00:32 ==
PROVIDERS: PCP Family Medicine; Visit Provider Obstetrics & Gynecology
DX: Z12.31 Encounter for screening mammogram for malignant neoplasm of breast (principal); Z85.3 Personal history of malignant neoplasm of breast; Z90.12 Acquired absence of left breast and nipple
CPT/HCPCS: 77063; 77067

== ENCOUNTER 2019-07-31 14:36 | Outpatient (CLI) | payer MEDICARE, SELFPAY ==
[2019-07-31 15:15] LABS: Bilirubin Negative (Negative); Blood Trace-lysed (Negative); Clarity Clear (Clear); Glucose Negative (Negative); Ketones Negative (Negative); Leukocyte Esterase Small (Negative); Nitrite Negative (Negative); Urobilinogen 0.2 EU/dL (Up TO 0.2); pH 6.5 (5-8)
[2019-07-31 15:29] LABS: Bacteria Negative HPF (Negative); C & S Indicated? No; Crystals Negative HPF (Negative); Epithelial Cells Rare HPF (Negative); Mucus Negative (Negative); RBC 0-2 HPF (0-2); WBC 0-2 HPF (0-5)
== END 2019-07-31 14:56 ==
PROVIDERS: PCP Family Medicine; Visit Provider Family Medicine
DX: R35.0 Frequency of micturition (principal); N39.0 Urinary tract infection, site not specified
CPT/HCPCS: 36415; 82306; 81003; 81015; 82746; 85014; 85018

== ENCOUNTER 2019-09-09 11:42 | Outpatient (CLI) | payer MEDICARE, SELFPAY ==
[2019-09-09 12:36] LABS: Anion Gap 9.6 mmol/L (3-11); BUN 17 mg/dL (7-18); CO2 26.4 mmol/L (21.0-32.0); CREATININE 0.87 mg/dL (0.55-1.02); Calcium 9.8 mg/dL (8.5-10.1); Chloride 103 mmol/L (98-107); Glucose 103 mg/dL (74-106); Magnesium 1.7 mg/dL (1.8-2.4); Potassium 3.9 mmol/L (3.5-5.1); Sodium 139 mmol/L (136-145)
== END 2019-09-09 12:02 ==
PROVIDERS: PCP Family Medicine; Visit Provider Family Medicine
DX: I10 Essential (primary) hypertension (principal)
CPT/HCPCS: 36415; 80048; 83735

== ENCOUNTER → 2019-09-11 10:49 | Outpatient (BNVA) | payer MEDICARE, SELFPAY | PROVIDERS: PCP Family Medicine; Referring Provider Family Medicine; Visit Provider Internal Medicine Cardiovascular Disease | DX: I48.20 Chronic atrial fibrillation, unspecified (principal); I10 Essential (primary) hypertension; I34.0 Nonrheumatic mitral (valve) insufficiency; G47.33 Obstructive sleep apnea (adult) (pediatric) | CPT/HCPCS: 99204; 99215 ==

== ENCOUNTER 2020-01-06 02:57 | Outpatient (CLI) | payer MEDICARE, SELFPAY ==
[2020-01-06 15:37] LABS: Anion Gap 9.5 mmol/L (3-11); BUN 15 mg/dL (7-18); CO2 24.5 mmol/L (21.0-32.0); CREATININE 0.86 mg/dL (0.55-1.02); Calcium 9.6 mg/dL (8.5-10.1); Chloride 103 mmol/L (98-107); Glucose 99 mg/dL (74-106); Magnesium 2.1 mg/dL (1.8-2.4); Potassium 4.1 mmol/L (3.5-5.1); Sodium 137 mmol/L (136-145); TSH 1.55 uIU/mL (0.36-3.74)
[2020-01-08 16:47] LABS: C-Reactive Protein 0.18 mg/dL (0.0-0.3); Creatine Kinase 99 U/L (26-192)
== END 2020-01-06 03:17 ==
PROVIDERS: PCP Family Medicine; Visit Provider Family Medicine
DX: R53.83 Other fatigue (principal)
CPT/HCPCS: 36415; 80048; 82550; 83735; 84443; 86140

== ENCOUNTER 2020-02-22 03:06 | Outpatient (CLI) | payer MEDICARE, SELFPAY ==
[2020-02-22 11:27] LABS: HGB 14.8 g/dL (12.0-15.5)
[2020-02-22 12:32] LABS: Anion Gap 6.9 mmol/L (3-11); BUN 17 mg/dL (7-18); CO2 27.1 mmol/L (21.0-32.0); CREATININE 1.02 mg/dL (0.55-1.02); Calcium 9.6 mg/dL (8.5-10.1); Chloride 104 mmol/L (98-107); Estimated GFR 52.69 (mL/min/1.73m2); Glucose 110 mg/dL (74-106); Sodium 138 mmol/L (136-145)
== END 2020-02-22 03:26 ==
PROVIDERS: PCP Family Medicine; Visit Provider Family Medicine
DX: I10 Essential (primary) hypertension (principal); I50.9 Heart failure, unspecified; D50.9 Iron deficiency anemia, unspecified; R53.1 Weakness
CPT/HCPCS: 36415; 80048; 85014; 85018